=== PATIENT | female | born 1990 | race Caucasian/White ===

== ENCOUNTER 2018-07-03 19:30 | Emergency (ER) | payer SELFPAY ==
[2018-07-03] MEDS ORDERED: Dexamethasone 10 MG/ML VIAL ONE (20:02)
== END 2018-07-03 20:35 | disposition home or self-care (01) ==
LOC: ERS 19:30
DX: J02.9 Acute pharyngitis, unspecified (principal)
CPT/HCPCS: 87081; 87430; 99283; J1100

== ENCOUNTER 2022-09-11 10:09 | Outpatient (CLI) | payer BC, OTHER | END 2022-09-11 10:10 | disposition home or self-care (01) | LOC: DTY/OP 10:09 | PROVIDERS: ATTEND Surgery | DX: E66.01 Morbid (severe) obesity due to excess calories (principal); Z68.42 Body mass index [BMI] 45.0-49.9, adult; Z71.3 Dietary counseling and surveillance | CPT/HCPCS: 97802 ==

== ENCOUNTER 2022-12-17 14:00 | Inpatient (IN) | payer BC ==
[2022-12-17 14:35] VITALS: BMI 43.2
[2022-12-26] MEDS ORDERED: Bupivacaine/Epinephrine 0.25% 30 ML VIAL ONE (08:57)
[2022-12-26] MEDS ORDERED: Sodium Chloride 0.9% 100 ML ONE (09:06)
[2022-12-26] MEDS ORDERED: fentaNYL PF 100 MCG/2 ML SYRINGE ONE (09:06)
[2022-12-26] MEDS ORDERED: CEFAZOLIN 2 GM VIAL ONE (09:06)
[2022-12-26] MEDS ORDERED: Rocuronium Bromide 10 MG/ML (10ML VIAL) ONE (09:19)
[2022-12-26] MEDS ORDERED: Dexamethasone 20 MG/5 ML VIAL ONE (09:19)
[2022-12-26] MEDS ORDERED: Ondansetron PF 4 MG/2 ML Vial ONE ×2 (09:19→11:46)
[2022-12-26] MEDS ORDERED: GLYCOPYRROLATE/PF 0.2 MG/ML VIAL ONE (09:19)
[2022-12-26] MEDS ORDERED: NEOSTIGMINE 3 MG/3 ML SYR 3 MG/3 ML SYRINGE ONE (09:19)
[2022-12-26] MEDS ORDERED: PROPOFOL 200 MG/20 ML VIAL ONE (09:19)
[2022-12-26] MEDS ORDERED: Lidocaine 1% PF 5 ML VIAL ONE (09:19)
[2022-12-26] MEDS ORDERED: FENTANYL 500 MCG/10 ML VIAL 2,000 MCG in Sodium Chloride 0.9% 60 ML IV PRN (10:30)
[2022-12-26] MEDS ORDERED: Promethazine HCl 25 MG/ML VIAL IM PRN ×3 (10:30→10:37)
[2022-12-26] MEDS ORDERED: ACTIVE PCA FS PRN (10:30)
[2022-12-26] MEDS ORDERED: Ondansetron HCl/PF 4 MG/2 ML Vial IVP PRN (10:30)
[2022-12-26] MEDS ORDERED: diphenhydrAMINE 50 MG/ML VIAL IVP PRN ×2 (10:30→10:37)
[2022-12-26] MEDS ORDERED: diphenhydrAMINE 50 MG/ML VIAL IM PRN (10:30)
[2022-12-26] MEDS ORDERED: diphenhydrAMINE 25 MG CAP PO PRN (10:30)
[2022-12-26] MEDS ORDERED: Zolpidem Tartrate 5 MG TAB PO PRN (10:30)
[2022-12-26] MEDS ORDERED: Naloxone HCl 0.4 mg/ml Vial IV PRN (10:30)
[2022-12-26] MEDS ORDERED: Dextrose 5% in Water 1,000 ML IV PRN (10:37)
[2022-12-26] MEDS ORDERED: Ondansetron PF 4 MG/2 ML Vial IVP PRN (10:37)
[2022-12-26] MEDS ORDERED: Glucagon 1 MG/ML KIT IM PRN (10:37)
[2022-12-26] MEDS ORDERED: hydrALAZINE 20 MG/ML VIAL SLOW IVP PRN (10:37)
[2022-12-26] MEDS ORDERED: Ipratropium/Albuterol 3 ML NEB NEB PRN (10:37)
[2022-12-26] MEDS ORDERED: Dextrose 50% Abboject 50 ML SYRINGE SLOW IVP PRN (10:37)
[2022-12-26] MEDS ORDERED: fentaNYL 50 mcg/mL 1 mL Vial ONE ×2 (10:43→11:08)
[2022-12-26] MEDS: D5 1/2 NS w/20 mEq KCL 1,000 ML IV SCH ×2 (18:45→18:46)
[2022-12-26] MEDS: Ondansetron PF 4 MG/2 ML Vial IVP PRN (18:49)
[2022-12-27] MEDS: D5 1/2 NS w/20 mEq KCL 1,000 ML IV SCH ×2 (02:35→10:04)
[2022-12-27 05:32] LABS: #Monocytes 0.8 thou/uL (0.11-0.59); #Neutrophils 8.4 thou/uL (1.40-6.50); %Basophils 0.2 % (0.0-1.0); %Eosinophils 0.2 % (0.0-10.0); %Lymphocytes 16.9 % (21.0-51.0); %Neutrophils 75.3 % (42.0-75.0); Hemoglobin 11.2 g/dL (12.0-16.0); Mean Corpuscular Hemoglobin 26.2 pg (27.0-31.0); Mean Corpuscular Volume 81.8 fl (78.0-98.0); Mean Platelet Volume 10.6 fL (7.4-10.4); Platelet Count 223 10x3/uL (130-400); RBC Distribution Width 14.1 % (11.5-14.5); Red Blood Cell (RBC) Count 4.28 mill/uL (4.20-5.40); White Blood Cell (WBC) Count 11.2 10x3/uL (4.8-10.8)
[2022-12-27] MEDS: Hydrocodone-Acetamin 15 ML UDCUP PO PRN ×2 (05:36→10:04)
[2022-12-27 05:59] LABS: Anion Gap 10 mmol/L (10-20); BUN (Urea Nitrogen) 5 mg/dL (7.0-18.7); Calc. Creatinine Clearance 232 mL/min (70-130); Calcium 8.6 mg/dL (7.8-10.44); Carbon Dioxide 23 mmol/L (22-29); Chloride 107 mmol/L (98-107); Estimated GFR 121; Glucose 122 mg/dL (70-105); Potassium 4.2 mmol/L (3.5-5.1); Sodium 136 mmol/L (136-145)
[2022-12-27] MEDS ORDERED: Citalopram 20 MG TAB PO SCH (09:00)
[2022-12-27] MEDS ORDERED: Pantoprazole 40 MG VIAL IVP SCH (09:00)
[2022-12-27] MEDS: Ondansetron PF 4 MG/2 ML Vial IVP PRN (10:06)
[2022-12-27 11:36] VITALS: BP 113/68; TEMP 98.4
== END 2022-12-27 11:15 | disposition home or self-care (01) | DRG 621 ==
LOC: SURG A 12-26 06:56 → SURG B 12-26 14:12
PROVIDERS: ADMIT Surgery; ATTEND Surgery
PROC: 0DB64Z3 Excision of Stomach, Percutaneous Endoscopic Approach, Vertical (ICD-10-PCS; principal; 2022-12-26)
PROC: 8E0W4CZ Robotic Assisted Procedure of Trunk Region, Percutaneous Endoscopic Approach (ICD-10-PCS; 2022-12-26)
DX: E66.01 Morbid (severe) obesity due to excess calories (principal); F41.9 Anxiety disorder, unspecified; F32.A Depression, unspecified; Z68.42 Body mass index [BMI] 45.0-49.9, adult; Z98.890 Other specified postprocedural states
CPT/HCPCS: 36415; 80048; 85025; 88307; 94760; C9113; J1100; J1650; J2405; J2704; J3010; J3480; J3490